=== PATIENT | female | born 1950 | race Caucasian/White ===

== ENCOUNTER → 2019-01-04 08:17 | Outpatient (CLI) | payer OTHER, SELFPAY ==
[2019-01-04 08:36] LABS: Add Manual Diff / Slide Review NO; Basophils Absolute Auto 0 /uL (0-100); Eosinophils Absolute Auto 200 /uL (0-450); Eosinophils Percent Auto 5.1 % (2-4); Hematocrit 39.6 % (36-46); Hemoglobin 13.4 g/dL (12.0-16.0); Lymphocytes Absolute Auto 1700 /uL (1100-4500); Lymphocytes Percent Auto 36.3 % (25-40); Mean Corpuscular HGB Conc 33.8 % (30-36); Mean Corpuscular Hemoglobin 31.9 PG (26-34); Mean Corpuscular Volume 94.3 fL (80-100); Monocytes Absolute Auto 400 /uL (0-900); Monocytes Percent Auto 9.2 % (3-14); Neutrophils Absolute Auto 2200 /uL (1500-7000); Neutrophils Percent Auto 48.4 % (50-75); Platelet Count 292 X10^3/uL (150-400); Red Cell Distribution Width 13.7 % (11.6-14.8); White Blood Cell Count 4.6 X10^3/uL (4.5-11.0)
[2019-01-04 09:06] LABS: Alanine Aminotransferase 21 IU/L (9-52); Albumin 4.5 g/dL (3.5-5.0); Albumin Globulin Ratio 1.6 (1.0-2.8); Alkaline Phosphatase 58 U/L (38-126); Aspartate Aminotransferase 25 IU/L (14-36); Bilirubin Total 0.3 mg/dL (0.2-1.3); Blood Urea Nitrogen 20 mg/dL (7-17); Calcium 9.4 mg/dL (8.4-10.2); Carbon Dioxide 27 mmol/L (22-32); Chloride 102 mmol/L (98-107); Cholesterol 225 mg/dL (140-199); Estimated Glomerular Filt Rate > 60.0 mL/min (>60); Globulin 2.8 g/dL (1.7-4.1); Glucose 94 mg/dL (80-110); HDL Cholesterol 88 mg/dL (40-60); HEMOLYSIS 15 (0-50); LDL Cholesterol Calculated 119 mg/dL (<100); Potassium 4.1 mmol/L (3.4-5.1); Sodium 138 mmol/L (137-145); Total Protein 7.3 g/dL (6.3-8.2); Triglycerides 88 mg/dL (35-150)
== END ==
PROVIDERS: PCP Family Medicine; Visit Provider Family Medicine
DX: E78.2 Mixed hyperlipidemia (principal); Z13.6 Encounter for screening for cardiovascular disorders
CPT/HCPCS: 36415; 80053; 80061; 84443; 85025

== ENCOUNTER → 2019-01-17 09:54 | Outpatient (CLI) | payer OTHER, SELFPAY ==
--- NOTE | 2019-01-17 09:56 | DI.RAD.S_ITS ---
PROCEDURE: XR HIP W PEL IF DONE LT MIN 4V INDICATIONS: hip pain TECHNIQUE: AP pelvis with lateral view(s) of the bilateral hip(s). COMPARISON: None. FINDINGS: Bones: No fractures or dislocations. Pelvic ring appears intact. No suspicious bony lesions. There is asymmetric degree of mild hip joint space narrowing Soft tissues: The visualized bowel gas pattern is normal. No suspicious soft tissue calcifications. 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 Dictated by: Lennox Dumont M.D. on 01/17/2019 at 10:37 Approved by: Lennox Dumont M.D. on 01/17/2019 at 10:37
== END ==
PROVIDERS: PCP Family Medicine; Visit Provider Family Medicine
DX: M25.559 Pain in unspecified hip (principal); M16.0 Bilateral primary osteoarthritis of hip
CPT/HCPCS: 73522

== ENCOUNTER 2019-05-03 08:15 | Outpatient (RCR) | payer OTHER, SELFPAY ==
--- NOTE | 2019-03-14 10:31 | PT.OIE ---
Current Diagnoses Pain in right hip (03/14/19) Pain in left hip (03/14/19) Past Surgical History History of carpal tunnel repair Provider Visit Care Team Role Provider Type Gael Colorado MD Attending Provider Physician Primary Care Provider Specialty: Family Practice Address: [address] [place] [address], [id number] Email: [email or web address] Physical Therapy Initial Evaluation PT-OP-A Visit Information Start: 03/12/19 11:07 Freq: Status: Active Protocol: Document 03/14/19 08:22 [facility] (Rec: 03/14/19 10:08 [facility] [id number]) Out-Patient Physical Therapy Visit Information Visit Information Visit Type Initial Evaluation Visit Start Time 08:45 Visit Stop Time 09:40 Total Visit Minutes 55 PT-OP-B Current Condition Start: 03/12/19 11:07 Freq: Status: Active Protocol: Document 03/14/19 08:22 [facility] (Rec: 03/14/19 10:08 [facility] [id number]) Current Condition History of Current Condition History of Current Condition Pt reports B hip pain that she barely notices in the summer, but it bothers her in the winter. Reports it will go between 0-3 and sometimes when she stands up it feels like it is going to buckle. 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 Pt reports she walks daily and in the summer she gardens. Pt reports pain is mostly random. Sitting a lot makes it worse. It rarely bothers her at night. Occasionally, it just hurts, but is unsure why. Prior Treatments and Tests xrays show arthritis B Treatment Goals Patient/Caregiver Goals Be more mindful of exercises she is doing, improve ROM PT-OP-C Subjective Start: 03/12/19 11:07 Freq: Status: Active Protocol: Document 03/14/19 08:22 [facility] (Rec: 03/14/19 10:08 [facility] [id number]) Patient Questionnaires Lower Extremity Functional Scale LEFS Score 72 LEFS Impairment 1 to 19% Impaired (Score 63-79 ) PT-OP-F Manual Assessment Start: 03/12/19 11:07 Freq: Status: Active Protocol: Document 03/14/19 08:22 [facility] (Rec: 03/14/19 10:08 [facility] [id number]) Manual Assessments Soft Tissue Assessment Soft Tissue Mobility Assessment Tightness in piriformis R>L Joint Mobility Assessment Joint Mobility Assessment tightness in R hip w/hip flex & B hips into ER with dec innominate mobility; equal iliac crest height PT-OP-G Mobility & Gait Start: 03/12/19 11:07 Freq: Status: Active Protocol: Document 03/14/19 08:22 [facility] (Rec: 03/14/19 10:08 [facility] [id number]) OP Gait Assessment Comments Gait Comments Pt amb with ER of pelvis L side with IR of femur PT-OP-J Posture/Palpation/Skin Start: 03/12/19 11:07 Freq: Status: Active Protocol: Document 03/14/19 08:22 [facility] (Rec: 03/14/19 10:08 [facility] [id number]) Posture Evaluation Jeff Postural Classification System Jeff Postural Classifications Vertical/Posterior Vertebral Compression Test 1 Elbow Flexion Test 5 Lumbar Protective Mechanism Left AP 0 Lumbar Protective Mechanism Right AP 3 Lumbar Protective Mechanism Left PA 2 Lumbar Protective Mechanism Right PA 3 PT-OP-K Range of Motion Start: 03/12/19 11:07 Freq: Status: Active Protocol: Document 03/14/19 08:22 [facility] (Rec: 03/14/19 10:08 [facility] [id number]) Hip Goniometric Range of Motion Hip Right Active Flexion w/Knee Flexed 128 Straight Leg Raise 95 Abduction 42 Internal Rotation 40 External Rotation 38 Left Active Flexion w/Knee Flexed 132 Straight Leg Raise 108 Abduction 37 Internal Rotation 48 External Rotation 28 PT-OP-L Special Tests Start: 03/12/19 11:07 Freq: Status: Active Protocol: Document 03/14/19 08:22 [facility] (Rec: 03/14/19 10:08 [facility] [id number]) Special Tests Hip Special Tests Niko Test Results iliopsoas tightness L & RF B Straight Leg Raise Test Results neg PT-OP-M Strength Start: 03/12/19 11:07 Freq: Status: Active Protocol: Document 03/14/19 08:22 [facility] (Rec: 03/14/19 10:08 [facility] [id number]) Hip Strength Hip Manual Muscle Testing Right Flexion (L2) 4+ Good+ Extension (S1) 4+ Good+ Abduction 4 Good Adduction 5 Normal External Rotation 4 Good Internal Rotation 4+ Good+ Left Flexion (L2) 4 Good Extension (S1) 4+ Good+ Abduction 4 Good Adduction 5 Normal External Rotation 4 Good Internal Rotation 5 Normal Knee Strength Knee Manual Muscle Testing Left Flexion (S2) 5 Normal Extension (L3) 5 Normal Right Flexion (S2) 5 Normal Extension (L3) 5 Normal Ankle/Foot Strength Ankle and Foot Manual Muscle Testing Left Dorsiflexion (L4) 5 Normal Right Dorsiflexion (L4) 5 Normal PT-OP-Q Treatments Start: 03/12/19 11:07 Freq: Status: Active Protocol: Document 03/14/19 08:22 [facility] (Rec: 03/14/19 10:08 [facility] [id number]) Therapeutic Exercises Supine Exercises Niko test Supine Exercise Name stretch Side bilateral Prone Exercises ER Prone Exercise Name ER Side bilateral Reps/Minutes 3 Manual Therapy Treatment Soft Tissue Mobilization piriformis Body Location B Mobilization Type Sustained Pressure Body Position Prone Comments w/ER Joint Mobilizations innominate Joint L Direction ER FM hip Joint B Direction hip on axis ER FM PT-OP-T Assessment and Plan Start: 03/12/19 11:07 Freq: Status: Active Protocol: Document 03/14/19 08:22 [facility] (Rec: 03/14/19 10:08 [facility] [id number]) Physical Therapy Assessment Rehab Potential Rehabilitation Potential Good Evaluation Complexity Number of Personal Factors/Comorbidities 1-2 Number of Body Systems Impaired 4 or More Clinical Presentation at Evaluation Stable Impairments Impairments Activity Tolerance Balance Functional Activities Functional Mobility Gait Pain Posture ROM Soft Tissue Mobility Strength Goals posture Foxer Goal (LTG) Pt will present with good posture & walking mechanics without cueing. LTG Duration 05/13/19 ROM Foxer Goal (LTG) Pt will have WNL hip ROM and flexibility B without pain at end ranges so she does not have pain at yoga LTG Duration 05/13/19 strength Short Term Goal (STG) Pt will be indep with HEP STG Duration 04/12/19 Prison Goal (LTG) Pt will have 5/5 LE strength, LPM & VCT to deomonstrate improved stability to allow cont active lifestyle without pain. Assessment Summary Assessment Pt presents with B intermittent hip pain that is conistant with OA. She does have limits in ROM & strength and would benefit from PT to address these concerns to allow her to maintain her active lifestyle. Physical Therapy Plan Frequency and Duration Duration of Treatment 2 months Plan of Care Start Date 03/14/19 Plan of Care End Date 05/14/19 Therapeutic Interventions Therapeutic Interventions Aquatic Therapy Balance Training Gait Training Home Exercise Program Joint Mobilizations Manual Therapy Neuromuscular Re-education Patient/Caregiver Education Self-Care/Home Management Soft Tissue Mobilization Taping Therapeutic Activities Therapeutic Exercises Modalities Cold Pack/Ice Massage Electric Stimulation Hot Packs Infrared Therapy Iontophoresis Ultrasound Next Visit Focus/Plan Next Note Type Treatment Note Next Visit Plan hip, sacrum & innominate mobs, side step squat
--- NOTE | 2019-03-14 10:31 | PT.OPPOC ---
Current Diagnoses Pain in right hip (03/14/19) Pain in left hip (03/14/19) Provider Visit Care Team Role Provider Type Gael Colorado MD Attending Provider Physician Primary Care Provider Specialty: Family Practice Address: [address] [place] [address], [phone] Email: [email or web address] Plan Of Care PT-OP-T Assessment and Plan Start: 03/12/19 11:07 Freq: Status: Active Protocol: Document 03/14/19 08:22 [facility] (Rec: 03/14/19 10:08 [facility] [id number]) Physical Therapy Assessment Rehab Potential Rehabilitation Potential Good Evaluation Complexity Number of Personal Factors/Comorbidities 1-2 Number of Body Systems Impaired 4 or More Clinical Presentation at Evaluation Stable Impairments Impairments Activity Tolerance Balance Functional Activities Functional Mobility Gait Pain Posture ROM Soft Tissue Mobility Strength Goals posture Fpc Goal (LTG) Pt will present with good posture & walking mechanics without cueing. LTG Duration 05/13/19 ROM [employer] Stores Attendant Goal (LTG) Pt will have WNL hip ROM and flexibility B without pain at end ranges so she does not have pain at yoga LTG Duration 05/13/19 strength Short Term Goal (STG) Pt will be indep with HEP STG Duration 04/12/19 [employer] Attendant Goal (LTG) Pt will have 5/5 LE strength, LPM & VCT to deomonstrate improved stability to allow cont active lifestyle without pain. Assessment Summary Assessment Pt presents with B intermittent hip pain that is conistant with OA. She does have limits in ROM & strength and would benefit from PT to address these concerns to allow her to maintain her active lifestyle. Physical Therapy Plan Frequency and Duration Duration of Treatment 2 months Plan of Care Start Date 03/14/19 Plan of Care End Date 05/14/19 Therapeutic Interventions Therapeutic Interventions Aquatic Therapy Balance Training Gait Training Home Exercise Program Joint Mobilizations Manual Therapy Neuromuscular Re-education Patient/Caregiver Education Self-Care/Home Management Soft Tissue Mobilization Taping Therapeutic Activities Therapeutic Exercises Modalities Cold Pack/Ice Massage Electric Stimulation Hot Packs Infrared Therapy Iontophoresis Ultrasound Next Visit Focus/Plan Next Note Type Treatment Note Next Visit Plan hip, sacrum & innominate mobs, side step squat Plan of Care Dates Plan of Care Start Date 03/14/19 Plan of Care End Date 05/14/19 Please Sign and Return: I have reviewed this Plan of Care and certify that the skilled therapy services above are required to meet the patient?s needs. Physician Signature Date Printed Name and Credentials Clinical Instructor Signature Printed Name and Credentials
--- NOTE | 2019-03-28 14:29 | PT.OTN ---
Current Diagnoses Pain in right hip (03/28/19) Pain in left hip (03/28/19) Physical Therapy Treatment Note PT-OP-A Visit Information Start: 03/12/19 11:07 Freq: Status: Active Protocol: Document 03/28/19 14:25 [facility] (Rec: 03/28/19 14:29 [facility] [id number]) Out-Patient Physical Therapy Visit Information Visit Information Visit Type Treatment Note Visit Start Time 10:35 Visit Stop Time 11:15 Total Visit Minutes 40 Visit Number 2 Number of LIME KILN OPERATOR Visits 0 PT-OP-B Current Condition Start: 03/12/19 11:07 Freq: Status: Active Protocol: Document 03/14/19 08:22 [facility] (Rec: 03/14/19 10:08 [facility] [id number]) Current Condition History of Current Condition History of Current Condition Pt reports B hip pain that she barely notices in the summer, but it bothers her in the winter. Reports it will go between 0-3 and sometimes when she stands up it feels like it is going to buckle. 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 Pt reports she walks daily and in the summer she gardens. Pt reports pain is mostly random. Sitting a lot makes it worse. It rarely bothers her at night. Occasionally, it just hurts, but is unsure why. Prior Treatments and Tests xrays show arthritis B Treatment Goals Patient/Caregiver Goals Be more mindful of exercises she is doing, improve ROM PT-OP-C Subjective Start: 03/12/19 11:07 Freq: Status: Active Protocol: Document 03/28/19 14:25 [facility] (Rec: 03/28/19 14:29 [facility] [id number]) OP-PT Subjective Patient Comments Patient Comments Pt reports compliance with exercises & stretching PT-OP-F Manual Assessment Start: 03/12/19 11:07 Freq: Status: Active Protocol: Document 03/14/19 08:22 [facility] (Rec: 03/14/19 10:08 [facility] [id number]) Manual Assessments Soft Tissue Assessment Soft Tissue Mobility Assessment Tightness in piriformis R>L Joint Mobility Assessment Joint Mobility Assessment tightness in R hip w/hip flex & B hips into ER with dec innominate mobility; equal iliac crest height PT-OP-G Mobility & Gait Start: 03/12/19 11:07 Freq: Status: Active Protocol: Document 03/14/19 08:22 [facility] (Rec: 03/14/19 10:08 [facility] [id number]) OP Gait Assessment Comments Gait Comments Pt amb with ER of pelvis L side with IR of femur PT-OP-J Posture/Palpation/Skin Start: 03/12/19 11:07 Freq: Status: Active Protocol: Document 03/14/19 08:22 [facility] (Rec: 03/14/19 10:08 [facility] [id number]) Posture Evaluation [facility] Postural Classification System [facility] Postural Classifications Vertical/Posterior Vertebral Compression Test 1 Elbow Flexion Test 5 Lumbar Protective Mechanism Left AP 0 Lumbar Protective Mechanism Right AP 3 Lumbar Protective Mechanism Left PA 2 Lumbar Protective Mechanism Right PA 3 PT-OP-K Range of Motion Start: 03/12/19 11:07 Freq: Status: Active Protocol: Document 03/14/19 08:22 [facility] (Rec: 03/14/19 10:08 [facility] [id number]) Hip Goniometric Range of Motion Hip Right Active Flexion w/Knee Flexed 128 Straight Leg Raise 95 Abduction 42 Internal Rotation 40 External Rotation 38 Left Active Flexion w/Knee Flexed 132 Straight Leg Raise 108 Abduction 37 Internal Rotation 48 External Rotation 28 PT-OP-L Special Tests Start: 03/12/19 11:07 Freq: Status: Active Protocol: Document 03/14/19 08:22 [facility] (Rec: 03/14/19 10:08 [facility] [id number]) Special Tests Hip Special Tests Niko Test Results iliopsoas tightness L & RF B Straight Leg Raise Test Results neg PT-OP-M Strength Start: 03/12/19 11:07 Freq: Status: Active Protocol: Document 03/14/19 08:22 [facility] (Rec: 03/14/19 10:08 [facility] [id number]) Hip Strength Hip Manual Muscle Testing Right Flexion (L2) 4+ Good+ Extension (S1) 4+ Good+ Abduction 4 Good Adduction 5 Normal External Rotation 4 Good Internal Rotation 4+ Good+ Left Flexion (L2) 4 Good Extension (S1) 4+ Good+ Abduction 4 Good Adduction 5 Normal External Rotation 4 Good Internal Rotation 5 Normal Knee Strength Knee Manual Muscle Testing Left Flexion (S2) 5 Normal Extension (L3) 5 Normal Right Flexion (S2) 5 Normal Extension (L3) 5 Normal Ankle/Foot Strength Ankle and Foot Manual Muscle Testing Left Dorsiflexion (L4) 5 Normal Right Dorsiflexion (L4) 5 Normal PT-OP-Q Treatments Start: 03/12/19 11:07 Freq: Status: Active Protocol: Document 03/28/19 14:25 [facility] (Rec: 03/28/19 14:29 [facility] [id number]) Therapeutic Exercises Standing Exercises side step squat Standing Exercise Name resisted Side bilateral Resistance L3 tband Reps/Minutes 5ft Comments min cueing for squat form Manual Therapy Treatment Soft Tissue Mobilization iliacus Body Location R Mobilization Type Sustained Pressure piriformis Body Location B Mobilization Type Sustained Pressure Body Position Prone Comments w/ER Joint Mobilizations sacrum Joint L Direction UPA innominate Joint B Direction ER & flex Functional mob hip Joint B Direction hip on axis ER & inf glide functional mob PT-OP-T Assessment and Plan Start: 03/12/19 11:07 Freq: Status: Active Protocol: Document 03/28/19 14:25 [facility] (Rec: 03/28/19 14:29 [facility] [id number]) Physical Therapy Assessment Goals posture Stereo Operator Goal (LTG) Pt will present with good posture & walking mechanics without cueing. LTG Duration 05/13/19 ROM Stereo Operator Goal (LTG) Pt will have WNL hip ROM and flexibility B without pain at end ranges so she does not have pain at yoga LTG Duration 05/13/19 strength Short Term Goal (STG) Pt will be indep with HEP STG Duration 04/12/19 Stereo Operator Goal (LTG) Pt will have 5/5 LE strength, LPM & VCT to deomonstrate improved stability to allow cont active lifestyle without pain. Assessment Summary Assessment Pt had significant improvement in hip ROM with treatment and reported feeling looser. She was able to complete side step squat exercise with min cueing for squat form. Physical Therapy Plan Frequency and Duration Duration of Treatment 2 months Plan of Care Start Date 03/14/19 Plan of Care End Date 05/14/19 Next Visit Focus/Plan Next Note Type Treatment Note Next Visit Plan hip, sacrum & innominate mobs as needed for inc mobility; work on hip flex strength; PNF pelvic girdle patterns
--- NOTE | 2019-04-12 09:40 | PT.OTN ---
Current Diagnoses Pain in right hip (04/12/19) Pain in left hip (04/12/19) Physical Therapy Treatment Note PT-OP-A Visit Information Start: 03/12/19 11:07 Freq: Status: Active Protocol: Document 04/12/19 09:37 [facility] (Rec: 04/12/19 09:40 [facility] [id number]) Out-Patient Physical Therapy Visit Information Visit Information Visit Type Treatment Note Visit Start Time 08:15 Visit Stop Time 09:00 Total Visit Minutes 38 Visit Number 3 PT-OP-B Current Condition Start: 03/12/19 11:07 Freq: Status: Active Protocol: Document 03/14/19 08:22 [facility] (Rec: 03/14/19 10:08 [facility] [id number]) Current Condition History of Current Condition History of Current Condition Pt reports B hip pain that she barely notices in the summer, but it bothers her in the winter. Reports it will go between 0-3 and sometimes when she stands up it feels like it is going to buckle. 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 Pt reports she walks daily and in the summer she gardens. Pt reports pain is mostly random. Sitting a lot makes it worse. It rarely bothers her at night. Occasionally, it just hurts, but is unsure why. Prior Treatments and Tests xrays show arthritis B Treatment Goals Patient/Caregiver Goals Be more mindful of exercises she is doing, improve ROM PT-OP-C Subjective Start: 03/12/19 11:07 Freq: Status: Active Protocol: Document 04/12/19 09:37 [facility] (Rec: 04/12/19 09:40 [facility] [id number]) OP-PT Subjective Patient Comments Patient Comments Pt reports flexibility on both is getting better. PT-OP-F Manual Assessment Start: 03/12/19 11:07 Freq: Status: Active Protocol: Document 03/14/19 08:22 [facility] (Rec: 03/14/19 10:08 [facility] [id number]) Manual Assessments Soft Tissue Assessment Soft Tissue Mobility Assessment Tightness in piriformis R>L Joint Mobility Assessment Joint Mobility Assessment tightness in R hip w/hip flex & B hips into ER with dec innominate mobility; equal iliac crest height PT-OP-G Mobility & Gait Start: 03/12/19 11:07 Freq: Status: Active Protocol: Document 03/14/19 08:22 [facility] (Rec: 03/14/19 10:08 [facility] [id number]) OP Gait Assessment Comments Gait Comments Pt amb with ER of pelvis L side with IR of femur PT-OP-J Posture/Palpation/Skin Start: 03/12/19 11:07 Freq: Status: Active Protocol: Document 03/14/19 08:22 [facility] (Rec: 03/14/19 10:08 [facility] [id number]) Posture Evaluation [facility] Postural Classification System [facility] Postural Classifications Vertical/Posterior Vertebral Compression Test 1 Elbow Flexion Test 5 Lumbar Protective Mechanism Left AP 0 Lumbar Protective Mechanism Right AP 3 Lumbar Protective Mechanism Left PA 2 Lumbar Protective Mechanism Right PA 3 PT-OP-K Range of Motion Start: 03/12/19 11:07 Freq: Status: Active Protocol: Document 03/14/19 08:22 [facility] (Rec: 03/14/19 10:08 [facility] [id number]) Hip Goniometric Range of Motion Hip Right Active Flexion w/Knee Flexed 128 Straight Leg Raise 95 Abduction 42 Internal Rotation 40 External Rotation 38 Left Active Flexion w/Knee Flexed 132 Straight Leg Raise 108 Abduction 37 Internal Rotation 48 External Rotation 28 PT-OP-L Special Tests Start: 03/12/19 11:07 Freq: Status: Active Protocol: Document 03/14/19 08:22 [facility] (Rec: 03/14/19 10:08 [facility] [id number]) Special Tests Hip Special Tests Niko Test Results iliopsoas tightness L & RF B Straight Leg Raise Test Results neg PT-OP-M Strength Start: 03/12/19 11:07 Freq: Status: Active Protocol: Document 03/14/19 08:22 [facility] (Rec: 03/14/19 10:08 [facility] [id number]) Hip Strength Hip Manual Muscle Testing Right Flexion (L2) 4+ Good+ Extension (S1) 4+ Good+ Abduction 4 Good Adduction 5 Normal External Rotation 4 Good Internal Rotation 4+ Good+ Left Flexion (L2) 4 Good Extension (S1) 4+ Good+ Abduction 4 Good Adduction 5 Normal External Rotation 4 Good Internal Rotation 5 Normal Knee Strength Knee Manual Muscle Testing Left Flexion (S2) 5 Normal Extension (L3) 5 Normal Right Flexion (S2) 5 Normal Extension (L3) 5 Normal Ankle/Foot Strength Ankle and Foot Manual Muscle Testing Left Dorsiflexion (L4) 5 Normal Right Dorsiflexion (L4) 5 Normal PT-OP-Q Treatments Start: 03/12/19 11:07 Freq: Status: Active Protocol: Document 04/12/19 09:37 [facility] (Rec: 04/12/19 09:40 [facility] [id number]) Cardio Equipment Recumbent Stepper (Sci-Fit) Duration (Minutes) 5 Resistance 2 Seat Position 9 Therapeutic Exercises Standing Exercises 2 Standing Exercise Name FWD lunges Reps/Minutes x 12 ft x 3 laps 1 Standing Exercise Name Squats Resistance 5Lbs Reps/Minutes x 12 reps side step squat Standing Exercise Name resisted Side bilateral Resistance L3 tband Reps/Minutes 5ft Comments min cueing for squat form Manual Therapy Treatment Soft Tissue Mobilization iliacus Body Location R Mobilization Type Sustained Pressure piriformis Body Location B Mobilization Type Sustained Pressure Body Position Prone Comments w/ER Joint Mobilizations sacrum Joint L Direction UPA innominate Joint B Direction ER & flex Functional mob hip Joint B Direction hip on axis ER & inf glide functional mob PT-OP-T Assessment and Plan Start: 03/12/19 11:07 Freq: Status: Active Protocol: Document 04/12/19 09:37 [facility] (Rec: 04/12/19 09:40 [facility] [id number]) Physical Therapy Assessment Assessment Summary Assessment Tolerated treatment well. Physical Therapy Plan Next Visit Focus/Plan Next Note Type Treatment Note Next Visit Plan hip, sacrum & innominate mobs as needed for inc mobility; work on hip flex strength; PNF pelvic girdle patterns
--- NOTE | 2019-04-26 10:29 | PT.OTN ---
Current Diagnoses Pain in right hip (04/26/19) Pain in left hip (04/26/19) Physical Therapy Treatment Note PT-OP-A Visit Information Start: 03/12/19 11:07 Freq: Status: Active Protocol: Document 04/26/19 09:27 [facility] (Rec: 04/26/19 10:29 [facility] [id number]) Out-Patient Physical Therapy Visit Information Visit Information Visit Type Treatment Note Visit Start Time 08:17 Visit Stop Time 09:02 Total Visit Minutes 45 Visit Number 4 Number of TESTING CONSULTANT Visits 0 PT-OP-B Current Condition Start: 03/12/19 11:07 Freq: Status: Active Protocol: Document 03/14/19 08:22 [facility] (Rec: 03/14/19 10:08 [facility] [id number]) Current Condition History of Current Condition History of Current Condition Pt reports B hip pain that she barely notices in the summer, but it bothers her in the winter. Reports it will go between 0-3 and sometimes when she stands up it feels like it is going to buckle. 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 Pt reports she walks daily and in the summer she gardens. Pt reports pain is mostly random. Sitting a lot makes it worse. It rarely bothers her at night. Occasionally, it just hurts, but is unsure why. Prior Treatments and Tests xrays show arthritis B Treatment Goals Patient/Caregiver Goals Be more mindful of exercises she is doing, improve ROM PT-OP-C Subjective Start: 03/12/19 11:07 Freq: Status: Active Protocol: Document 04/26/19 09:27 [facility] (Rec: 04/26/19 10:29 [facility] [id number]) OP-PT Subjective Patient Comments Patient Comments Pt reports she was very sore after last session. She had some inc tightness after that session and feels like she went backwards a little with her tightness. It was eye opening for her though of her weakness so she has started working on lunges & squatting at home. PT-OP-F Manual Assessment Start: 03/12/19 11:07 Freq: Status: Active Protocol: Document 03/14/19 08:22 [facility] (Rec: 03/14/19 10:08 [facility] [id number]) Manual Assessments Soft Tissue Assessment Soft Tissue Mobility Assessment Tightness in piriformis R>L Joint Mobility Assessment Joint Mobility Assessment tightness in R hip w/hip flex & B hips into ER with dec innominate mobility; equal iliac crest height PT-OP-G Mobility & Gait Start: 03/12/19 11:07 Freq: Status: Active Protocol: Document 03/14/19 08:22 [facility] (Rec: 03/14/19 10:08 [facility] [id number]) OP Gait Assessment Comments Gait Comments Pt amb with ER of pelvis L side with IR of femur PT-OP-J Posture/Palpation/Skin Start: 03/12/19 11:07 Freq: Status: Active Protocol: Document 03/14/19 08:22 [facility] (Rec: 03/14/19 10:08 [facility] [id number]) Posture Evaluation Jeff Postural Classification System Jeff Postural Classifications Vertical/Posterior Vertebral Compression Test 1 Elbow Flexion Test 5 Lumbar Protective Mechanism Left AP 0 Lumbar Protective Mechanism Right AP 3 Lumbar Protective Mechanism Left PA 2 Lumbar Protective Mechanism Right PA 3 PT-OP-K Range of Motion Start: 03/12/19 11:07 Freq: Status: Active Protocol: Document 03/14/19 08:22 [facility] (Rec: 03/14/19 10:08 [facility] [id number]) Hip Goniometric Range of Motion Hip Right Active Flexion w/Knee Flexed 128 Straight Leg Raise 95 Abduction 42 Internal Rotation 40 External Rotation 38 Left Active Flexion w/Knee Flexed 132 Straight Leg Raise 108 Abduction 37 Internal Rotation 48 External Rotation 28 PT-OP-L Special Tests Start: 03/12/19 11:07 Freq: Status: Active Protocol: Document 03/14/19 08:22 [facility] (Rec: 03/14/19 10:08 [facility] [id number]) Special Tests Hip Special Tests Niko Test Results iliopsoas tightness L & RF B Straight Leg Raise Test Results neg PT-OP-M Strength Start: 03/12/19 11:07 Freq: Status: Active Protocol: Document 03/14/19 08:22 [facility] (Rec: 03/14/19 10:08 [facility] [id number]) Hip Strength Hip Manual Muscle Testing Right Flexion (L2) 4+ Good+ Extension (S1) 4+ Good+ Abduction 4 Good Adduction 5 Normal External Rotation 4 Good Internal Rotation 4+ Good+ Left Flexion (L2) 4 Good Extension (S1) 4+ Good+ Abduction 4 Good Adduction 5 Normal External Rotation 4 Good Internal Rotation 5 Normal Knee Strength Knee Manual Muscle Testing Left Flexion (S2) 5 Normal Extension (L3) 5 Normal Right Flexion (S2) 5 Normal Extension (L3) 5 Normal Ankle/Foot Strength Ankle and Foot Manual Muscle Testing Left Dorsiflexion (L4) 5 Normal Right Dorsiflexion (L4) 5 Normal PT-OP-Q Treatments Start: 03/12/19 11:07 Freq: Status: Active Protocol: Document 04/26/19 09:27 [facility] (Rec: 04/26/19 10:29 [facility] [id number]) Manual Therapy Treatment Joint Mobilizations sacrum Direction caudal FM innominate Direction L ER & B flex Functional mob hip Direction L hip on axis ER & B inf glide functional mob Neuro Re-Education Treatment Other Activities gait at wall Details to faciliate ant elevatioN & post depression Reps/Duration B 10 sec holds PNF Details ant elevation & post dep Reps/Duration B Comments rhythmic initition progressed to COI progresed to COI with LE patterns with isotonic reversals PT-OP-T Assessment and Plan Start: 03/12/19 11:07 Freq: Status: Active Protocol: Document 04/26/19 09:27 [facility] (Rec: 04/26/19 10:29 [facility] [id number]) Physical Therapy Assessment Goals posture Enterprise Application Analyst Goal (LTG) Pt will present with good posture & walking mechanics without cueing. LTG Duration 05/13/19 ROM Mcc Goal (LTG) Pt will have WNL hip ROM and flexibility B without pain at end ranges so she does not have pain at yoga LTG Duration 05/13/19 strength Short Term Goal (STG) Pt will be indep with HEP STG Duration 04/12/19 Mcc Goal (LTG) Pt will have 5/5 LE strength, LPM & VCT to deomonstrate improved stability to allow cont active lifestyle without pain. Assessment Summary Assessment Pt had inc tightness on L side greater than R which improved with joint mobilizations. She had difficulty with post depression patterning with tendency to want to rotate through her lumbar spine. Physical Therapy Plan Frequency and Duration Duration of Treatment 2 months Plan of Care Start Date 03/14/19 Plan of Care End Date 05/14/19 Next Visit Focus/Plan Next Note Type Treatment Note Next Visit Plan work on standing posture progressed into wt shift fwd to resisted walking; work on soft tissue restrictions as needed
--- NOTE | 2019-05-03 09:40 | PT.OTN ---
Current Diagnoses Pain in right hip (05/03/19) Pain in left hip (05/03/19) Physical Therapy Treatment Note PT-OP-A Visit Information Start: 03/12/19 11:07 Freq: Status: Active Protocol: Document 05/03/19 09:15 [facility] (Rec: 05/03/19 09:40 [facility] [id number]) Out-Patient Physical Therapy Visit Information Visit Information Visit Type Discharge Summary Visit Start Time 08:20 Visit Stop Time 09:00 Total Visit Minutes 40 Visit Number 5 PT-OP-B Current Condition Start: 03/12/19 11:07 Freq: Status: Active Protocol: Document 03/14/19 08:22 [facility] (Rec: 03/14/19 10:08 [facility] [id number]) Current Condition History of Current Condition History of Current Condition Pt reports B hip pain that she barely notices in the summer, but it bothers her in the winter. Reports it will go between 0-3 and sometimes when she stands up it feels like it is going to buckle. 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 Pt reports she walks daily and in the summer she gardens. Pt reports pain is mostly random. Sitting a lot makes it worse. It rarely bothers her at night. Occasionally, it just hurts, but is unsure why. Prior Treatments and Tests xrays show arthritis B Treatment Goals Patient/Caregiver Goals Be more mindful of exercises she is doing, improve ROM PT-OP-C Subjective Start: 03/12/19 11:07 Freq: Status: Active Protocol: Document 05/03/19 09:15 [facility] (Rec: 05/03/19 09:40 [facility] [id number]) OP-PT Subjective Patient Comments Patient Comments Pt reports she has to cancel her last appt next week. She feels like she is doing well and is working hard on exercises. Patient Reported Progress Improving PT-OP-F Manual Assessment Start: 03/12/19 11:07 Freq: Status: Active Protocol: Document 03/14/19 08:22 [facility] (Rec: 03/14/19 10:08 [facility] [id number]) Manual Assessments Soft Tissue Assessment Soft Tissue Mobility Assessment Tightness in piriformis R>L Joint Mobility Assessment Joint Mobility Assessment tightness in R hip w/hip flex & B hips into ER with dec innominate mobility; equal iliac crest height PT-OP-G Mobility & Gait Start: 03/12/19 11:07 Freq: Status: Active Protocol: Document 03/14/19 08:22 [facility] (Rec: 03/14/19 10:08 [facility] [id number]) OP Gait Assessment Comments Gait Comments Pt amb with ER of pelvis L side with IR of femur PT-OP-J Posture/Palpation/Skin Start: 03/12/19 11:07 Freq: Status: Active Protocol: Document 03/14/19 08:22 [facility] (Rec: 03/14/19 10:08 [facility] [id number]) Posture Evaluation [facility] Postural Classification System [facility] Postural Classifications Vertical/Posterior Vertebral Compression Test 1 Elbow Flexion Test 5 Lumbar Protective Mechanism Left AP 0 Lumbar Protective Mechanism Right AP 3 Lumbar Protective Mechanism Left PA 2 Lumbar Protective Mechanism Right PA 3 PT-OP-K Range of Motion Start: 03/12/19 11:07 Freq: Status: Active Protocol: Document 03/14/19 08:22 [facility] (Rec: 03/14/19 10:08 [facility] [id number]) Hip Goniometric Range of Motion Hip Right Active Flexion w/Knee Flexed 128 Straight Leg Raise 95 Abduction 42 Internal Rotation 40 External Rotation 38 Left Active Flexion w/Knee Flexed 132 Straight Leg Raise 108 Abduction 37 Internal Rotation 48 External Rotation 28 PT-OP-L Special Tests Start: 03/12/19 11:07 Freq: Status: Active Protocol: Document 03/14/19 08:22 [facility] (Rec: 03/14/19 10:08 [facility] [id number]) Special Tests Hip Special Tests Niko Test Results iliopsoas tightness L & RF B Straight Leg Raise Test Results neg PT-OP-M Strength Start: 03/12/19 11:07 Freq: Status: Active Protocol: Document 03/14/19 08:22 [facility] (Rec: 03/14/19 10:08 [facility] [id number]) Hip Strength Hip Manual Muscle Testing Right Flexion (L2) 4+ Good+ Extension (S1) 4+ Good+ Abduction 4 Good Adduction 5 Normal External Rotation 4 Good Internal Rotation 4+ Good+ Left Flexion (L2) 4 Good Extension (S1) 4+ Good+ Abduction 4 Good Adduction 5 Normal External Rotation 4 Good Internal Rotation 5 Normal Knee Strength Knee Manual Muscle Testing Left Flexion (S2) 5 Normal Extension (L3) 5 Normal Right Flexion (S2) 5 Normal Extension (L3) 5 Normal Ankle/Foot Strength Ankle and Foot Manual Muscle Testing Left Dorsiflexion (L4) 5 Normal Right Dorsiflexion (L4) 5 Normal PT-OP-Q Treatments Start: 03/12/19 11:07 Freq: Status: Active Protocol: Document 05/03/19 09:15 [facility] (Rec: 05/03/19 09:40 [facility] [id number]) Gym Equipment Sport Cord red Exercise Details fwd, back and side B Cord/Resistance red Comments wt shift to wt acceptance to then walking Therapeutic Activity Therapeutic Activity posture Name standing posture in mirror Comments progressed to appropriate wt shift then wt acceptance BLE Manual Therapy Treatment Joint Mobilizations innominate Direction L flex FM hip Direction L hip on axis ER & B inf glide functional mob PT-OP-T Assessment and Plan Start: 03/12/19 11:07 Freq: Status: Active Protocol: Document 05/03/19 09:15 [facility] (Rec: 05/03/19 09:40 [facility] [id number]) Physical Therapy Assessment Goals posture Senior Care Goal (LTG) Pt will present with good posture & walking mechanics without cueing. LTG Duration min cueing after exu ROM Leather Carver Goal (LTG) Pt will have WNL hip ROM and flexibility B without pain at end ranges so she does not have pain at yoga LTG Duration achieved during movements today strength Short Term Goal (STG) Pt will be indep with HEP STG Duration achieved Leather Carver Goal (LTG) Pt will have 5/5 LE strength, LPM & VCT to deomonstrate improved stability to allow cont active lifestyle without pain. LTG Duration not tested today but improved weigth shift in standing & functional ability Assessment Summary Assessment Pt is improving with overall gliding of hips B with flex and ER. She improves quickly with mobs and was reminded to cont exercises to strengthen throughout new range. She did well with cueing for posture, wt shift and weight acceptance in standing and was able to apply this into gait. Physical Therapy Plan Discharge Physical Therapy Discharge Reasons Goals Met
== END 2019-05-09 15:15 | disposition home or self-care (01) ==
LOC: PHYS 08:15
PROVIDERS: PCP Family Medicine; Visit Provider Family Medicine
DX: M25.551 Pain in right hip (principal); M25.552 Pain in left hip
CPT/HCPCS: 97110; 97112; 97140; 97161; 97530

== ENCOUNTER → 2019-07-23 11:28 | Outpatient (CLI) | payer OTHER, SELFPAY | PROVIDERS: PCP Family Medicine | DX: Z23 Encounter for immunization (principal) | CPT/HCPCS: 90471; 90662 ==

== ENCOUNTER → 2019-10-11 08:15 | Outpatient (CLI) | payer OTHER, SELFPAY ==
--- NOTE | 2019-10-11 | DI.MG.S_ITS ---
BILATERAL DIGITAL SCREENING MAMMOGRAM 3D/2D WITH CAD: 10/11/2019 CLINICAL: Routine screening. Comparison is made to exams dated: 11/07/2017 mammogram, 07/14/2016 mammogram, and 09/09/2014 mammogram - [facility]. The tissue of both breasts is heterogeneously dense. This may lower the sensitivity of mammography. Current study was also evaluated with a Computer Aided Detection (CAD) system. There are benign vascular calcifications in both breasts. No significant masses, calcifications, or other findings are seen in either breast. There has been no significant interval change. IMPRESSION: There is no mammographic evidence of malignancy. A 1 year screening mammogram is recommended. This exam was interpreted at Station ID: [id number]. NOTE: For mammograms, a report in lay terms will be sent to the patient. Approximately 15% of breast malignancies will not be visualized mammographically. In the management of a palpable breast mass, a negative mammogram must not discourage biopsy of a clinically suspicious lesion. Electronically Signed By: Keny jackson/raghu:10/11/2019 09:07:29 letter sent: Normal Exam ACR BI-RADS Category 2: Benign Finding(s) 3342F
== END ==
PROVIDERS: PCP Family Medicine; Visit Provider Family Medicine
DX: Z12.31 Encounter for screening mammogram for malignant neoplasm of breast (principal)
CPT/HCPCS: 77063; 77067

== ENCOUNTER → 2020-01-21 09:45 | Outpatient (CLI) | payer OTHER, SELFPAY ==
[2020-01-21 10:39] LABS: Add Manual Diff / Slide Review NO; Basophils Absolute Auto 100 /uL (0-100); Basophils Percent Auto 1.2 % (0-2); Eosinophils Absolute Auto 200 /uL (0-450); Eosinophils Percent Auto 4.1 % (2-4); Hematocrit 41.5 % (36-46); Hemoglobin 13.9 g/dL (12.0-16.0); Lymphocytes Absolute Auto 1600 /uL (1100-4500); Lymphocytes Percent Auto 34.9 % (25-40); Mean Corpuscular HGB Conc 33.5 % (30-36); Mean Corpuscular Hemoglobin 32.3 PG (26-34); Mean Corpuscular Volume 96.4 fL (80-100); Monocytes Absolute Auto 500 /uL (0-900); Monocytes Percent Auto 9.6 % (3-14); Neutrophils Absolute Auto 2400 /uL (1500-7000); Neutrophils Percent Auto 50.2 % (50-75); Platelet Count 295 X10^3/uL (150-400); White Blood Cell Count 4.7 X10^3/uL (4.5-11.0)
[2020-01-21 10:54] LABS: Alanine Aminotransferase 23 IU/L (<35); Albumin 4.6 g/dL (3.5-5.0); Albumin Globulin Ratio 1.4 (1.0-2.8); Alkaline Phosphatase 71 U/L (38-126); Aspartate Aminotransferase 31 IU/L (14-36); BUN Creatinine Ratio 19.8 (6-22); Bilirubin Total 0.4 mg/dL (0.2-1.3); Blood Urea Nitrogen 17 mg/dL (7-17); Calcium 9.8 mg/dL (8.4-10.2); Carbon Dioxide 30 mmol/L (22-32); Chloride 104 mmol/L (98-107); Cholesterol 285 mg/dL (140-199); Estimated Glomerular Filt Rate > 60.0 mL/min (>60); Globulin 3.2 g/dL (1.7-4.1); Glucose 100 mg/dL (80-110); HDL Cholesterol 105 mg/dL (40-60); HEMOLYSIS < 15 (0-50); LDL Cholesterol Calculated 168 mg/dL (<100); Potassium 4.4 mmol/L (3.4-5.1); Sodium 140 mmol/L (137-145); Total Protein 7.8 g/dL (6.3-8.2); Triglycerides 61 mg/dL (35-150)
[2020-01-21 12:02] LABS: TSH w/ Reflex to FT4 1.02 uIU/mL (0.47-4.68)
== END ==
PROVIDERS: PCP Family Medicine; Referring Provider Family Medicine; Visit Provider Family Medicine
DX: D72.829 Elevated white blood cell count, unspecified (principal); E78.2 Mixed hyperlipidemia; M16.12 Unilateral primary osteoarthritis, left hip
CPT/HCPCS: 36415; 80053; 80061; 84443; 85025

== ENCOUNTER → 2020-06-26 | Outpatient (CLI) | payer OTHER, SELFPAY | PROVIDERS: PCP Family Medicine; Referring Provider Internal Medicine; Visit Provider Internal Medicine | DX: Z23 Encounter for immunization (principal) | CPT/HCPCS: 90471; 90686 ==

== ENCOUNTER → 2020-08-25 10:04 | Outpatient (CLI) | payer OTHER, SELFPAY ==
--- NOTE | 2020-08-25 10:06 | DI.RAD.S_ITS ---
PROCEDURE: XR THORACIC SPINE 3V INDICATIONS: throracic back pain TECHNIQUE: 3 views of the thoracic spine were acquired. COMPARISON: None. FINDINGS: Bones: No fractures or dislocations. No suspicious bony lesions. Twelve pairs of ribs are noted, and appear intact where visualized. There is a mild degree of degenerative disc disease along the thoracic spine, but no area of compression fracture or significant disc height reduction is found. Paravertebral soft tissue swelling is not seen. Soft tissues: No paravertebral stripe thickening. 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 No compression fracture or evidence of discitis/osteomyelitis is seen. Dictated by: Lennox Dumont M.D. on 08/25/2020 at 11:29 Approved by: Lennox Dumont M.D. on 08/25/2020 at 11:31
== END ==
PROVIDERS: PCP Family Medicine; Referring Provider Family Medicine; Visit Provider Family Medicine
DX: M51.34 Other intervertebral disc degeneration, thoracic region (principal)
CPT/HCPCS: 72072

== ENCOUNTER → 2020-10-13 12:22 | Outpatient (CLI) | payer OTHER, SELFPAY ==
--- NOTE | 2020-10-13 12:24 | DI.RAD.S_ITS ---
PROCEDURE: XR LUMBAR SPINE 2-3V INDICATIONS: Lumbar back pain TECHNIQUE: 3 views of the lumbar spine were acquired. COMPARISON: None. FINDINGS: Bones: 5 [id number] vertebrae are present. There is normal bony alignment. No vertebral body compression fractures. No suspicious bony lesions. Degenerative changes are minimal there is mild facet arthrosis at L4-5 and L5-S1. Disc spaces are normal. Soft tissues: Overlying bowel gas pattern is normal. No suspicious soft tissue calcifications. IMPRESSION: 1. Mild facet arthrosis at L4-5 and L5-S1. 2. Otherwise no significant degenerative changes. 3. No acute abnormality. 4. No disc space narrowing to suggest significant disc disease. Dictated by: Ubaldo Cooper M.D. on 10/13/2020 at 13:24 Approved by: Ubaldo Cooper M.D. on 10/13/2020 at 13:28
== END ==
PROVIDERS: PCP Family Medicine; Referring Provider Family Medicine; Visit Provider Family Medicine
DX: M54.5 Low back pain (principal); M47.816 Spondylosis without myelopathy or radiculopathy, lumbar region; M47.817 Spondylosis without myelopathy or radiculopathy, lumbosacral region
CPT/HCPCS: 72100

== ENCOUNTER → 2021-02-04 11:39 | Outpatient (CLI) | payer OTHER, SELFPAY ==
[2021-02-04 13:09] LABS: Add Manual Diff / Slide Review NO; Basophils Absolute Auto 100 /uL (0-100); Basophils Percent Auto 0.9 % (0-2); Eosinophils Absolute Auto 100 /uL (0-450); Eosinophils Percent Auto 2.5 % (2-4); Hematocrit 37.9 % (36-46); Hemoglobin 12.7 g/dL (12.0-16.0); Lymphocytes Absolute Auto 1400 /uL (1100-4500); Lymphocytes Percent Auto 24.1 % (25-40); Mean Corpuscular HGB Conc 33.5 % (30-36); Mean Corpuscular Hemoglobin 31.6 PG (26-34); Mean Corpuscular Volume 94.1 fL (80-100); Monocytes Absolute Auto 400 /uL (0-900); Monocytes Percent Auto 6.6 % (3-14); Neutrophils Absolute Auto 3900 /uL (1500-7000); Neutrophils Percent Auto 65.9 % (50-75); Platelet Count 268 X10^3/uL (150-400); Red Blood Cell Count 4.03 X10^6/uL (4.0-5.2); Red Cell Distribution Width 14.2 % (11.6-14.8); White Blood Cell Count 5.9 X10^3/uL (4.5-11.0)
[2021-02-04 13:45] LABS: Alanine Aminotransferase 25 IU/L (<35); Albumin 4.4 g/dL (3.5-5.0); Albumin Globulin Ratio 1.6 (1.0-2.8); Alkaline Phosphatase 80 U/L (38-126); Aspartate Aminotransferase 33 IU/L (14-36); Bilirubin Total 0.3 mg/dL (0.2-1.3); Blood Urea Nitrogen 20 mg/dL (7-17); Calcium 9.8 mg/dL (8.4-10.2); Carbon Dioxide 28 mmol/L (22-32); Chloride 103 mmol/L (98-107); Cholesterol 248 mg/dL (140-199); Estimated Glomerular Filt Rate > 60.0 mL/min (>60); Globulin 2.8 g/dL (1.7-4.1); Glucose 91 mg/dL (80-110); HDL Cholesterol 108 mg/dL (40-60); HEMOLYSIS < 15 (0-50); LDL Cholesterol Calculated 129 mg/dL (<100); Potassium 4.2 mmol/L (3.4-5.1); Sodium 138 mmol/L (137-145); Total Protein 7.2 g/dL (6.3-8.2); Triglycerides 53 mg/dL (35-150)
[2021-02-04 16:51] LABS: TSH w/ Reflex to FT4 0.54 uIU/mL (0.47-4.68)
== END ==
PROVIDERS: PCP Family Medicine; Referring Provider Family Medicine; Visit Provider Family Medicine
DX: D72.829 Elevated white blood cell count, unspecified (principal); E78.2 Mixed hyperlipidemia
CPT/HCPCS: 36415; 80053; 80061; 84443; 85025

== ENCOUNTER → 2021-02-12 13:33 | Outpatient (CLI) | payer OTHER, SELFPAY | PROVIDERS: PCP Family Medicine; Referring Provider Family Medicine; Visit Provider Family Medicine | DX: M81.0 Age-related osteoporosis without current pathological fracture (principal); Z13.820 Encounter for screening for osteoporosis; Z78.0 Asymptomatic menopausal state; E78.2 Mixed hyperlipidemia; D72.829 Elevated white blood cell count, unspecified | CPT/HCPCS: 77080 ==

== ENCOUNTER → 2021-04-06 10:21 | Outpatient (CLI) | payer OTHER, SELFPAY ==
[2021-04-06 11:40] LABS: COVID19 -Nasal RAPID Negative (Negative)
== END ==
PROVIDERS: PCP Family Medicine; Visit Provider Physician Assistant
DX: Z01.812 Encounter for preprocedural laboratory examination (principal); Z20.822 Contact with and (suspected) exposure to COVID-19
CPT/HCPCS: 87635; C9803

== ENCOUNTER 2021-04-07 06:57 | Day surgery (SDC) | payer OTHER, SELFPAY ==
[2021-04-07 07:11] VITALS: BP 125/79; PULSE 73; RESP 16; TEMP 36.4; O2SAT 100; BMI 20.7
--- NOTE | 2021-04-07 07:55 | PM.HP.1 ---
History of Present Illness History of Present Illness Date Patient Seen: 04/07/21 Time Patient Seen: 07:55 Chief complaint: SDC Narrative: I reviewed Dr Villalobos's note. Family hx of CRC in sister Patient History Surgical History History of carpal tunnel repair Family & Social History Family History Mother Stroke Hypertension Smoker Family history unavailable: No Social History: household members spouse Tobacco & Substance use: Smoking Status Never smoker alcohol intake current Substance Use Type does not use Meds Home Medications and Allergies Home Medications Medication Instructions Recorded Confirmed Type cholecalciferol (vitamin D3) PO 01/21/20 02/04/21 History lisinopril 10 mg tablet 10 mg PO DAILY #30 tab 03/11/21 04/07/21 Rx conjugated estrogens 0.625 mg/gram 0.625 mg VAGINAL DAILY #30 g 03/12/21 04/07/21 Rx vaginal cream (Premarin) Allergies Allergy/AdvReac Type Severity Reaction Status Date / Time No Known Drug Allergies Allergy Verified 04/07/21 07:06 Review of Systems Review of Systems ROS: Yes All systems reviewed with the patient and are negative except as otherwise documented Exam Vital Signs (past 8 hours): - 04/07/21 07:11 Temperature 97.6 F Pulse Rate 73 Respiratory Rate 16 Blood Pressure 125/79 Pulse Oximetry 100 Oxygen Delivery Method Room Air Const General: cooperative and comfortable Orientation: alert HENMT Head: normocephalic Ears: external ears normal Nose: external nose normal Face and sinus: normal facial exam Mouth: oral mucosae normal Eyes General: appearance normal, both eyes and all related structures Neck Neck: normal visual inspection Chest Chest: normal inspection of the chest Resp Effort & Inspection: normal respiratory effort Auscultation: clear to auscultation bilaterally Cardio Rate: regular rate Rhythm: regular rhythm Heart Sounds: no murmurs GI Inspection: normal to inspection Palpation: soft and No tender Auscultation: normal bowel sounds Skin General: no rashes or lesions noted and No jaundice Neuro General: patient alert and moves all extremities Cognition: normal cognition Speech: speech normal Extrem General: no pedal edema Psych Appearance: grossly normal Assessment & Plan Assessment & Plan narrative: family hx of colon cancer. proceed with colonoscopy.
--- NOTE | 2021-04-07 07:58 | PM.PREOP ---
Pre-operative Note COVID-19 COVID-19 status: Negative Result date/Date tested (Pos, Neg/Pending): 04/06/21 Interval Note History & Physical reviewed/Exam performed by Physician: Yes Changes to H&P: No ASA Class (for procedural sedation): II
[2021-04-07] MEDS: MIDAZOLAM 5 MG/5 ML VIAL IV (08:30)
[2021-04-07] MEDS: fentaNYL 250 MCG/5 ML INJ IV (08:30)
--- NOTE | 2021-04-07 08:45 | PM.OP.ENDO ---
Operative Date/Time/Diagnoses Date of procedure: 04/07/21 Time of procedure: 08:45 Pre-op diagnosis: family hx crc Post-op diagnosis: same Procedure & Clinicians Study performed: colonoscopy Same procedure as scheduled: Yes Indications: family hx of colon cancer Surgeon: Jair Angelo Procedure Notes SCOAP/Timeout: Done Procedure in detail: After the risks and benefits were explained, written and verbal informed consent was obtained. The patient was brought into the procedure room and placed into the left lateral decubitus position. Conscious sedation medication was applied as per nursing documentation. Digital rectal examination was accomplished. The scope was introduced into the patient and advanced under direct visualization to the cecum as identified by the appendiceal orifice and ileocecal valve. The scope was slowly withdrawn to carefully examine the mucosa for any defects or lesions. Comprehensive imaging was accomplished throughout the rectum including the dentate line. The colon was decompressed, the scope was then removed from the patient who tolerated the procedure well. 150mcg Fentanyl, 7mg versed Prep excellent Scope withdrawal time: 7min Sedation minutes: 40 Impression: Patient had an internal hemorrhoid that could easily be palpated on digital rectal exam. This was soft. This was visible with direct endoscopic views and in the retroflexed position.. The patient had an extremely tortuous challenging navigation. Much of our prolonged procedure time was spent attempting to navigate to cecum. With patient position changes the use of the stiffening device and application of pressure to the abdomen we were able to successfully arrive in the cecum. I did not encounter any significant polyps mass lesions or inflammatory features throughout. Endoscopic diagnosis 1. Tortuous colon 2. Hemorrhoids Post-procedure Recommendations: Colonscopy in 5 years Plan for aftercare: In light of the family history, repeat colonoscopy is suggested for 5 years time. Disposition: PACU
[2021-04-07 08:50] VITALS: BP 101/38; PULSE 72; RESP 15; TEMP 36.6; O2SAT 99
[2021-04-07 08:55] VITALS: BP 115/73; PULSE 70; RESP 15; O2SAT 99
[2021-04-07 09:00] VITALS: BP 100/60; PULSE 74; RESP 16; O2SAT 99
[2021-04-07 09:05] VITALS: BP 104/57; PULSE 65; RESP 16; O2SAT 99
== END 2021-04-07 09:10 | disposition home or self-care (01) ==
PROVIDERS: PCP Family Medicine; Referring Provider Internal Medicine Gastroenterology; Visit Provider Internal Medicine Gastroenterology
PROC: 0DJD8ZZ Inspection of Lower Intestinal Tract, Via Natural or Artificial Opening Endoscopic (ICD-10-PCS; CPT 45378; principal; 2021-04-07 08:00)
DX: Z12.11 Encounter for screening for malignant neoplasm of colon (principal); Z80.0 Family history of malignant neoplasm of digestive organs; K64.9 Unspecified hemorrhoids
CPT/HCPCS: G0105; J2250; J3010

== ENCOUNTER → 2021-10-14 10:48 | Outpatient (CLI) | payer OTHER, SELFPAY ==
--- NOTE | 2021-10-14 | DI.MG.S_ITS ---
BILATERAL DIGITAL SCREENING MAMMOGRAM 3D/2D WITH CAD: 10/14/2021 CLINICAL: Routine screening. Comparison is made to exams dated: 10/11/2019 mammogram, 11/07/2017 mammogram, and 07/14/2016 mammogram - [facility]. The tissue of both breasts is heterogeneously dense. This may lower the sensitivity of mammography. Current study was also evaluated with a Computer Aided Detection (CAD) system. There are benign vascular calcifications in both breasts. No significant masses, calcifications, or other findings are seen in either breast. There has been no significant interval change. IMPRESSION: BENIGN There is no mammographic evidence of malignancy. A 1 year screening mammogram is recommended. This exam was interpreted at Station ID: [id number]. NOTE: For mammograms, a report in lay terms will be sent to the patient. Approximately 15% of breast malignancies will not be visualized mammographically. In the management of a palpable breast mass, a negative mammogram must not discourage biopsy of a clinically suspicious lesion. Electronically Signed By: Ubaldo Cooper acr/raghu:10/14/2021 11:08:15 letter sent: Normal Exam ACR BI-RADS Category 2: Benign Finding(s) 3342F
== END ==
PROVIDERS: PCP Family Medicine; Referring Provider Family Medicine; Visit Provider Family Medicine
DX: Z12.31 Encounter for screening mammogram for malignant neoplasm of breast (principal)
CPT/HCPCS: 77063; 77067

== ENCOUNTER → 2022-04-01 08:17 | Outpatient (CLI) | payer OTHER, SELFPAY ==
[2022-04-01 09:03] LABS: Add Manual Diff / Slide Review NO; Basophils Absolute Auto 100 /uL (0-100); Basophils Percent Auto 1.5 % (0-2); Eosinophils Absolute Auto 100 /uL (0-450); Eosinophils Percent Auto 3.8 % (2-4); Lymphocytes Absolute Auto 1300 /uL (1100-4500); Lymphocytes Percent Auto 35.8 % (25-40); Mean Corpuscular HGB Conc 33.3 % (30-36); Mean Corpuscular Hemoglobin 31.3 PG (26-34); Monocytes Absolute Auto 400 /uL (0-900); Monocytes Percent Auto 10.4 % (3-14); Neutrophils Absolute Auto 1800 /uL (1500-7000); Neutrophils Percent Auto 48.5 % (50-75); Platelet Count 303 X10^3/uL (150-400); Red Blood Cell Count 3.83 X10^6/uL (4.0-5.2); Red Cell Distribution Width 14.1 % (11.6-14.8); White Blood Cell Count 3.7 X10^3/uL (4.5-11.0)
[2022-04-01 09:42] LABS: Alanine Aminotransferase 15 IU/L (<35); Albumin 4.2 g/dL (3.5-5.0); Albumin Globulin Ratio 1.6 (1.0-2.8); Alkaline Phosphatase 63 U/L (38-126); Aspartate Aminotransferase 25 IU/L (14-36); BUN Creatinine Ratio 18.7 (6-22); Bilirubin Total 0.7 mg/dL (0.2-1.3); Blood Urea Nitrogen 17 mg/dL (7-17); Calcium 9.2 mg/dL (8.4-10.2); Carbon Dioxide 30 mmol/L (22-32); Chloride 102 mmol/L (98-107); Cholesterol 227 mg/dL (140-199); Estimated Glomerular Filt Rate > 60 mL/min (>60); Globulin 2.6 g/dL (1.7-4.1); Glucose 89 mg/dL (80-110); HDL Cholesterol 94 mg/dL (40-60); HEMOLYSIS < 15 (0-50); LDL Cholesterol Calculated 121 mg/dL (<100); Potassium 4.6 mmol/L (3.4-5.1); Sodium 138 mmol/L (137-145); Total Protein 6.8 g/dL (6.3-8.2); Triglycerides 61 mg/dL (35-150)
[2022-04-01 10:04] LABS: Thyroid Stimulating Hormone 0.443 uIU/mL (0.47-4.68)
== END ==
PROVIDERS: PCP Family Medicine; Referring Provider Family Medicine; Visit Provider Family Medicine
DX: D72.829 Elevated white blood cell count, unspecified (principal); E78.2 Mixed hyperlipidemia
CPT/HCPCS: 36415; 80053; 80061; 84443; 85025

== ENCOUNTER → 2022-10-29 11:32 | Outpatient (CLI) | payer OTHER, SELFPAY ==
--- NOTE | 2022-10-29 | DI.MG.S_ITS ---
BILATERAL DIGITAL SCREENING MAMMOGRAM 3D/2D WITH CAD: 10/29/2022 CLINICAL: Routine screening. Comparison is made to exams dated: 10/14/2021 mammogram, 10/11/2019 mammogram, and 11/07/2017 mammogram - [facility]. Both breasts are heterogeneously dense, which may obscure small masses (category c / 51-75% glandular tissue). Current study was also evaluated with a Computer Aided Detection (CAD) system. There are benign vascular calcifications in both breasts. No significant masses, calcifications, or other findings are seen in either breast. There has been no significant interval change. IMPRESSION: BENIGN There is no mammographic evidence of malignancy. A 1 year screening mammogram is recommended. Based on the Tyrer Cuzick model (a risk assessment model) the patient's lifetime risk is 4.4% and her 10 year risk is 3.3%. According to the ACR, ACS, and NCCN guidelines, an annual breast MRI exam along with mammogram is recommended if the patient's lifetime risk is 20% or greater. This exam was interpreted at Station ID: [id number]. NOTE: For mammograms, a report in lay terms will be sent to the patient. Approximately 15% of breast malignancies will not be visualized mammographically. In the management of a palpable breast mass, a negative mammogram must not discourage biopsy of a clinically suspicious lesion. Electronically Signed By: Maggie trimble/raghu:10/29/2022 16:08:31 letter sent: Normal Exam ACR BI-RADS Category 2: Benign Finding(s) 3342F
== END ==
PROVIDERS: PCP Family Medicine; Referring Provider Family Medicine; Visit Provider Family Medicine
DX: Z12.31 Encounter for screening mammogram for malignant neoplasm of breast (principal)
CPT/HCPCS: 77063; 77067

== ENCOUNTER → 2023-04-18 07:40 | Outpatient (CLI) | payer OTHER, SELFPAY ==
[2023-04-18 08:42] LABS: Add Manual Diff / Slide Review NO; Basophils Absolute Auto 100 /uL (0-100); Basophils Percent Auto 1.1 % (0-2); Eosinophils Absolute Auto 200 /uL (0-450); Eosinophils Percent Auto 4.4 % (2-4); Hematocrit 36.7 % (36-46); Hemoglobin 12.3 g/dL (12.0-16.0); Lymphocytes Absolute Auto 1800 /uL (1100-4500); Lymphocytes Percent Auto 38.8 % (25-40); Mean Corpuscular HGB Conc 33.6 % (30-36); Mean Corpuscular Hemoglobin 31.3 PG (26-34); Mean Corpuscular Volume 93.2 fL (80-100); Monocytes Absolute Auto 500 /uL (0-900); Monocytes Percent Auto 10.3 % (3-14); Neutrophils Absolute Auto 2200 /uL (1500-7000); Neutrophils Percent Auto 45.4 % (50-75); Platelet Count 290 X10^3/uL (150-400); Red Blood Cell Count 3.94 X10^6/uL (4.0-5.2); Red Cell Distribution Width 13.9 % (11.6-14.8); White Blood Cell Count 4.7 X10^3/uL (4.5-11.0)
[2023-04-18 10:43] LABS: Alanine Aminotransferase 18 IU/L (<35); Albumin 4.3 g/dL (3.5-5.0); Albumin Globulin Ratio 1.5 (1.0-2.8); Alkaline Phosphatase 62 U/L (38-126); Aspartate Aminotransferase 25 IU/L (14-36); BUN Creatinine Ratio 26.7 (6-22); Bilirubin Total 0.4 mg/dL (0.2-1.3); Blood Urea Nitrogen 23 mg/dL (7-17); Calcium 9.6 mg/dL (8.4-10.2); Carbon Dioxide 29 mmol/L (22-32); Chloride 103 mmol/L (98-107); Cholesterol 253 mg/dL (140-199); Estimated Glomerular Filt Rate > 60 mL/min (>60); Globulin 2.8 g/dL (1.7-4.1); Glucose 90 mg/dL (80-110); HDL Cholesterol 98 mg/dL (40-60); HEMOLYSIS < 15 (0-50); LDL Cholesterol Calculated 140 mg/dL (<100); Potassium 4.5 mmol/L (3.4-5.1); Sodium 138 mmol/L (137-145); Total Protein 7.1 g/dL (6.3-8.2); Triglycerides 74 mg/dL (35-150)
[2023-04-18 11:06] LABS: TSH w/ Reflex to FT4 2.21 uIU/mL (0.47-4.68)
== END ==
PROVIDERS: PCP Family Medicine; Referring Provider Family Medicine; Visit Provider Family Medicine
DX: D72.829 Elevated white blood cell count, unspecified (principal); E78.2 Mixed hyperlipidemia
CPT/HCPCS: 36415; 80053; 80061; 84443; 85025

== ENCOUNTER 2023-12-14 01:22 | Emergency (ER) | payer OTHER, SELFPAY ==
[2023-12-14 01:25] VITALS: BP 143/85; PULSE 76; RESP 18; TEMP 36.4; O2SAT 97
[2023-12-14 01:46] LABS: Appearance Urine UA TURBID; Bilirubin Urine UA NEGATIVE (NEGATIVE); Color Urine UA RED; Glucose Urine UA NEGATIVE (Negative); Ketones Urine UA NEGATIVE (NEGATIVE); Leukocyte Esterase Urine UA 1+ (NEGATIVE); Nitrite Urine UA NEGATIVE (Negative); Occult Blood Urine UA 3+ (Negative); Protein Urine UA 3+ (Negative); Urobilinogen Urine UA 0.2 E.U./dL (0.2); pH Urine UA 6.5 (4.5-8.0)
[2023-12-14 01:47] LABS: Bacteria Urine Occasional (0-1); RBC Urine >100/HPF (0-5/HPF); Urine Volume 10mL (spun); WBC Urine 0-1/HPF (0-5/HPF)
[2023-12-14 01:48] LABS: Squamous Epithelial Cell Urine 0-1 /HPF (0-5/HPF)
--- NOTE | 2023-12-14 02:11 | ED.GENADULT ---
HPI - General Adult General Chief complaint: Urogenital-Female Stated complaint: thinks bladder infection Time Seen by Provider: 12/14/23 01:32 Source: patient Mode of arrival: Ambulatory History of Present Illness HPI narrative: Patient is a 73-year-old female. Does not get frequent urinary tract infections however over the past several hours has developed urinary frequency, dysuria and dark-colored urine. She denies any fevers. No trauma. She has been riding a bicycle frequently over the past couple days. No change in bowel habits. Related Data Previous Rx's Medication Instructions Recorded conjugated estrogens 0.625 mg/gram 0.625 mg vaginal DAILY #30 grams 04/14/23 vaginal cream (Premarin) lisinopril 10 mg tablet See Rx Instructions .Route 04/14/23 .COMPLEX #90 tabs permethrin 5 % topical cream 1 applic topical ONCE #120 grams 08/02/23 (Elimite) nitrofurantoin 100 mg PO Q12H 5 days #10 caps 12/14/23 monohydrate/macrocrystals 100 mg capsule (Macrobid) phenazopyridine 100 mg tablet 100 mg PO TID PRN pain 6 doses #6 12/14/23 (Pyridium) tabs Allergies Allergy/AdvReac Type Severity Reaction Status Date / Time No Known Drug Allergies Allergy Verified 08/02/23 11:29 Review of Systems Constitutional Constitutional: Reports system reviewed and no additional complaints, except as documented Gastrointestinal Gastrointestinal: Reports system reviewed and no additional complaints, except as documented Genitourinary Genitourinary: Reports system reviewed and no additional complaints, except as documented Integumentary/Breasts Skin/Breast: Reports system reviewed and no additional complaints, except as documented Patient History Surgical History History of carpal tunnel repair Family History Mother Stroke Hypertension Smoker Social History marital status: household members: spouse Smoking Status: Never smoker alcohol intake: current substance use type: does not use Smoking Status: Never smoker alcohol intake frequency: 0-2 drinks per day Substance Use Type: does not use Exam Initial Vital Signs Initial Vital Signs: Vital Signs Temperature 97.6 F 12/14/23 01:25 Pulse Rate 76 12/14/23 01:25 Respiratory Rate 18 12/14/23 01:25 Blood Pressure 143/85 H 12/14/23 01:25 Pulse Oximetry 97 12/14/23 01:25 Oxygen Delivery Method Room Air 12/14/23 01:25 [facility] Head: normal to inspection Resp Effort & Inspection: normal respiratory effort Cardio Rate: regular rate GI Inspection: non-distended Skin General: no rashes or lesions noted Neuro General: patient alert and patient awake Course Orders Ordered: ED Orders 12/14/23 01:30 Urinalysis and Microscopic Stat Urine Culture Stat 12/14/23 02:15 Basic Metabolic Panel Stat Complete Blood Count AUTO DIFF Stat Vital Signs Vital signs: Vital Signs - 8 hr 12/14/23 01:25 12/14/23 03:07 Temperature 97.6 F Pulse Rate 76 78 Respiratory Rate 18 18 Blood Pressure 143/85 H 144/81 H Pulse Oximetry 97 99 Oxygen Delivery Method Room Air Room Air Medical Decision Making Lab Data Lab results reviewed: Yes I reviewed the patient's lab results. 12/14/23 02:15 12/14/23 02:15 Labs: Lab Results 12/14/23 12/14/23 Range/Units 01:30 02:15 WBC 7.5 (4.5-11.0) X10^3/uL RBC 3.96 L (4.0-5.2) X10^6/uL Hgb 12.5 (12.0-16.0) g/dL Hct 37.3 (36-46) % MCV 94.3 (80-100) fL MCH 31.7 (26-34) PG MCHC 33.6 (30-36) % RDW 14.2 (11.6-14.8) % Plt Count 285 (150-400) X10^3/uL Neut % (Auto) 65.5 (50-75) % Lymph % (Auto) 20.3 L (25-40) % [place] % (Auto) 9.9 (3-14) % Eos % (Auto) 3.3 (2-4) % Baso % (Auto) 1.0 (0-2) % Neut # (Auto) 4900 (1039-8846) /uL Lymph # (Auto) 1500 (1882-8742) /uL [place] # (Auto) 700 (0-900) /uL Eos # (Auto) 300 (0-450) /uL Baso # (Auto) 100 (0-100) /uL Sodium 136 L (137-145) mmol/L Potassium 4.2 (3.4-5.1) mmol/L Chloride 103 (98-107) mmol/L Carbon Dioxide 27 (22-32) mmol/L BUN 22 H (7-17) mg/dL Creatinine 0.82 (0.52-1.04) mg/dL Estimated GFR > 60 (>60) mL/min BUN/Creatinine Ratio 26.8 H (6-22) Glucose 111 H (80-110) mg/dL Calcium 9.7 (8.4-10.2) mg/dL Urine Color Red Urine Appearance Turbid Urine pH 6.5 (4.5-8.0) Ur Specific [place] 1.020 (1.000-1.035) Urine Protein 3+ H (Negative) Urine Glucose (UA) Negative (Negative) g/dL Urine Ketones Negative (NEGATIVE) Urine Occult Blood 3+ H (Negative) Urine Nitrate Negative (Negative) Urine Bilirubin Negative (NEGATIVE) Urine Urobilinogen 0.2 (0.2) E.U./dL Ur Leukocyte Esterase 1+ H (NEGATIVE) Urine RBC >100/hpf H (0-5/HPF) Urine WBC 0-1/hpf (0-5/HPF) Ur Squamous Epith Cells 0-1 /hpf (0-5/HPF) Urine Bacteria Occasional (0-1) (None) Vol Urine Centrifuged 10ml (spun) MDM Narrative Medical decision making narrative: Patient does not get frequent urinary tract infections. Symptoms were relatively sudden onset. She does have hematuria but no leukocytosis and very small amount of bacteria. No recent illnesses. No sore throat. No trauma to the urogenital system. Kidney function is unremarkable. I suspect that the dysuria that she is having is most likely related to the hematuria. The question is whether not this hematuria is related to an infection. The urinalysis would not be consistent with a infection. There is a urine culture that is pending. The plan will be is to discharge the patient home with a printed prescription for antibiotics. She was going to hold on filling and taking this prescription. She was going to increase her fluid intake. So that she is urinating frequently as this may clear the hematuria. If her symptoms persist over the next 12-24 hours then she can fill the prescription and start taking it as directed. We will wait for the urine culture as well. She was advised to follow-up with her primary doctor for repeat urinalysis to ensure that the hematuria has cleared. She was given return precautions. She expressed understanding and agreement. Discharge Plan Departure Patient Disposition: Home Clinical Impression: Hematuria Instructions: DI for Hematuria Activity Restrictions/Additional Instructions: I do recommend that you use the Pyridium as needed for discomfort. Be sure that your increasing your fluid intake. If your symptoms resolve over the next 24-48 hours then do not fill the antibiotics. You are going to need a follow-up with your primary doctor. If your symptoms are not improving then please fill the antibiotic prescription and start taking it as directed. There is a urine culture pending at the time of your discharge him we will contact you for the results of this. Return to the emergency department for new symptoms. Prescriptions: New phenazopyridine [Pyridium] 100 mg tablet 100 mg PO TID PRN (Reason: pain) Qty: 6 0RF nitrofurantoin monohyd/m-cryst [Macrobid] 100 mg capsule 100 mg PO Q12H 5 Days Qty: 10 0RF Rx Instructions: must administer with a meal/food No Action Premarin 0.625 mg/gram cream 0.625 mg vaginal DAILY Qty: 30 3RF Rx Instructions: nightly for two weeks then 3 times a week lisinopril 10 mg tablet See Rx Instructions .ROUTE .COMPLEX Qty: 90 3RF Dose Instruction: TAKE ONE TABLET BY MOUTH ONCE DAILY Rx Instructions: TAKE ONE TABLET BY MOUTH ONCE DAILY permethrin [Elimite] 5 % cream 1 applic topical ONCE Qty: 120 0RF Rx Instructions: leave on for 8 to14 hrs before washing off Referrals: Gael Colorado MD [Primary Care Provider] - Stand Alone Forms: Patient Portal/API
[2023-12-14 02:29] LABS: Add Manual Diff / Slide Review NO; Basophils Absolute Auto 100 /uL (0-100); Eosinophils Absolute Auto 300 /uL (0-450); Eosinophils Percent Auto 3.3 % (2-4); Hematocrit 37.3 % (36-46); Hemoglobin 12.5 g/dL (12.0-16.0); Lymphocytes Absolute Auto 1500 /uL (1100-4500); Lymphocytes Percent Auto 20.3 % (25-40); Mean Corpuscular HGB Conc 33.6 % (30-36); Mean Corpuscular Hemoglobin 31.7 PG (26-34); Mean Corpuscular Volume 94.3 fL (80-100); Monocytes Absolute Auto 700 /uL (0-900); Monocytes Percent Auto 9.9 % (3-14); Neutrophils Absolute Auto 4900 /uL (1500-7000); Neutrophils Percent Auto 65.5 % (50-75); Platelet Count 285 X10^3/uL (150-400); Red Blood Cell Count 3.96 X10^6/uL (4.0-5.2); Red Cell Distribution Width 14.2 % (11.6-14.8); White Blood Cell Count 7.5 X10^3/uL (4.5-11.0)
[2023-12-14 02:39] LABS: BUN Creatinine Ratio 26.8 (6-22); Blood Urea Nitrogen 22 mg/dL (7-17); Calcium 9.7 mg/dL (8.4-10.2); Carbon Dioxide 27 mmol/L (22-32); Chloride 103 mmol/L (98-107); Estimated Glomerular Filt Rate > 60 mL/min (>60); Glucose 111 mg/dL (80-110); HEMOLYSIS < 15 (0-50); Potassium 4.2 mmol/L (3.4-5.1); Sodium 136 mmol/L (137-145)
[2023-12-14 03:07] VITALS: BP 144/81; PULSE 78; RESP 18; O2SAT 99
== END 2023-12-14 03:11 | disposition home or self-care (01) ==
PROVIDERS: Emergency Provider Emergency Medicine; PCP Family Medicine
DX: R35.0 Frequency of micturition (principal); R31.9 Hematuria, unspecified
CPT/HCPCS: 36415; 80048; 81001; 85025; 87086; 99283

== ENCOUNTER → 2023-12-29 07:47 | Outpatient (CLI) | payer OTHER, SELFPAY ==
--- NOTE | 2023-12-29 07:49 | DI.US.S_ITS ---
PROCEDURE: US RENAL COMPLETE INDICATIONS: Gross hematuria - painless TECHNIQUE: Real-time scanning was performed of the kidneys and bladder, with image documentation. COMPARISON: None. FINDINGS: Kidneys: Kidneys are small in size. Right kidney measures 8.4 cm long; left kidney measures 7.6 cm long. Right renal cortical thickness is 0.7 cm; left renal cortical thickness is 0.9 cm. Renal cortical echotexture is normal. No hydronephrosis or nephrolithiasis. No suspicious solid mass lesions. Bladder: Pre-void bladder volume is 33 mL. Post-void residual is 2 mL. Pre-void images demonstrate no intraluminal masses or stones. On pre-void images, no ureteral jets are noted with color Doppler interrogation. (Of note, ureteral jets may not be detectable in up to 25% of cases due to insufficient differences in specific gravity between ureteral and bladder urine). Miscellaneous: No free pelvic fluid. IMPRESSION: 1. No hydronephrosis or sonographic evidence of nephrolithiasis bilaterally. 2. Bilateral kidneys are small in size with cortical thinning which may represent sequela of remote infection or inflammation versus medical renal disease. 3. Bladder is decompressed, limiting evaluation. Dictated by: Diane Bradley M.D. on 12/29/2023 at 12:59 Approved by: Diane Bradley M.D. on 12/29/2023 at 13:06
== END ==
LOC: US 07:48
PROVIDERS: PCP Family Medicine; Referring Provider Family Medicine; Visit Provider Family Medicine
DX: R31.9 Hematuria, unspecified (principal); R10.2 Pelvic and perineal pain
CPT/HCPCS: 76770

== ENCOUNTER → 2024-01-20 10:56 | Outpatient (CLI) | payer OTHER, SELFPAY ==
--- NOTE | 2024-01-20 | DI.MG.S_ITS ---
BILATERAL DIGITAL SCREENING MAMMOGRAM 3D/2D WITH CAD: 01/20/2024 CLINICAL: Routine screening. Comparison is made to exams dated: 10/29/2022 mammogram, 10/14/2021 mammogram, and 10/11/2019 mammogram - [facility]. There are scattered areas of fibroglandular density in both breasts (category b / 25%-50% glandular tissue). Current study was also evaluated with a Computer Aided Detection (CAD) system. There are benign vascular calcifications in both breasts. No significant masses, calcifications, or other findings are seen in either breast. There has been no significant interval change. IMPRESSION: BENIGN There is no mammographic evidence of malignancy. A 1 year screening mammogram is recommended. Based on the Tyrer Cuzick model (a risk assessment model) the patient's lifetime risk is 2.7% and her 10 year risk is 2.2%. According to the ACR, ACS, and NCCN guidelines, an annual breast MRI exam along with mammogram is recommended if the patient's lifetime risk is 20% or greater. This exam was interpreted at Station ID: [id number]. NOTE: For mammograms, a report in lay terms will be sent to the patient. Approximately 15% of breast malignancies will not be visualized mammographically. In the management of a palpable breast mass, a negative mammogram must not discourage biopsy of a clinically suspicious lesion. Electronically Signed By: Maggie trimble/raghu:01/20/2024 14:26:44 letter sent: Normal Exam ACR BI-RADS Category 2: Benign Finding(s) 3342F
== END ==
PROVIDERS: PCP Family Medicine; Referring Provider Family Medicine; Visit Provider Family Medicine
DX: Z12.31 Encounter for screening mammogram for malignant neoplasm of breast (principal); R92.323 Mammographic fibroglandular density, bilateral breasts
CPT/HCPCS: 77063; 77067

== ENCOUNTER → 2024-01-23 10:28 | Outpatient (CLI) | payer OTHER, SELFPAY ==
[2024-01-23 10:57] LABS: Add Manual Diff / Slide Review NO; Basophils Absolute Auto 100 /uL (0-100); Basophils Percent Auto 0.7 % (0-2); Eosinophils Absolute Auto 200 /uL (0-450); Hematocrit 39.9 % (36-46); Hemoglobin 13.4 g/dL (12.0-16.0); Lymphocytes Absolute Auto 2400 /uL (1100-4500); Lymphocytes Percent Auto 31.4 % (25-40); Mean Corpuscular HGB Conc 33.5 % (30-36); Mean Corpuscular Hemoglobin 31.6 PG (26-34); Mean Corpuscular Volume 94.4 fL (80-100); Monocytes Absolute Auto 700 /uL (0-900); Neutrophils Absolute Auto 4200 /uL (1500-7000); Neutrophils Percent Auto 55.9 % (50-75); Platelet Count 334 X10^3/uL (150-400); Red Blood Cell Count 4.23 X10^6/uL (4.0-5.2); Red Cell Distribution Width 14.2 % (11.6-14.8); White Blood Cell Count 7.5 X10^3/uL (4.5-11.0)
[2024-01-23 11:30] LABS: Alanine Aminotransferase 19 IU/L (<35); Albumin 4.9 g/dL (3.5-5.0); Albumin Globulin Ratio 1.4 (1.0-2.8); Alkaline Phosphatase 74 U/L (38-126); Aspartate Aminotransferase 32 IU/L (14-36); BUN Creatinine Ratio 26.3 (6-22); Bilirubin Total 0.4 mg/dL (0.2-1.3); Blood Urea Nitrogen 20 mg/dL (7-17); Carbon Dioxide 30 mmol/L (22-32); Chloride 104 mmol/L (98-107); Estimated Glomerular Filt Rate > 60 mL/min (>60); Globulin 3.4 g/dL (1.7-4.1); Glucose 111 mg/dL (80-110); HEMOLYSIS < 15 (0-50); Potassium 4.2 mmol/L (3.4-5.1); Sodium 139 mmol/L (137-145); Total Protein 8.3 g/dL (6.3-8.2)
[2024-01-23 11:53] LABS: Appearance Urine UA SL CLOUDY; Bilirubin Urine UA NEGATIVE (NEGATIVE); Color Urine UA YELLOW; Glucose Urine UA NEGATIVE (Negative); Ketones Urine UA NEGATIVE (NEGATIVE); Leukocyte Esterase Urine UA 3+ (NEGATIVE); Nitrite Urine UA NEGATIVE (Negative); Occult Blood Urine UA TRACE-INTACT (Negative); Protein Urine UA NEGATIVE (Negative); Specific Gravity Urine UA <=1.005 (1.000-1.035); Urobilinogen Urine UA 0.2 E.U./dL (0.2)
[2024-01-23 12:20] LABS: Urine Volume 10mL (spun); pH Urine UA 5.5 (4.5-8.0)
[2024-01-23 12:21] LABS: Bacteria Urine None Seen; RBC Urine None Seen (0-5/HPF); Squamous Epithelial Cell Urine 0-1 /HPF (0-5/HPF); WBC Urine 30-100/HPF (0-5/HPF)
== END ==
LOC: LAB 10:28
PROVIDERS: PCP Family Medicine; Referring Provider Family Medicine; Visit Provider Family Medicine
DX: R80.9 Proteinuria, unspecified (principal)
CPT/HCPCS: 36415; 80053; 81001; 85025

== ENCOUNTER → 2024-01-25 14:43 | Outpatient (CLI) | payer OTHER, SELFPAY ==
--- NOTE | 2024-01-25 14:44 | DI.CT.S_ITS ---
PROCEDURE: CT KIDNEY URETER BLADDER (KUB) INDICATIONS: hematuria and proteniuria TECHNIQUE: Axial sections were acquired from the lung bases to the pubic symphysis. Coronal and sagittal reformats were performed. For radiation dose reduction, the following was used: automated exposure control, adjustment of mA and/or kV according to patient size. COMPARISON: None. FINDINGS: Image quality: Diagnostic. Lower Chest: No significant findings. URINARY: Right Kidney: No stones or hydronephrosis. Right Ureter: No hydroureter. Left Kidney: No stones or hydronephrosis. Small junctional cortical defect on the posterior margin of the left kidney, indicating prior infection or vascular insult. Left Ureter: No hydroureter. Bladder: Normal wall thickness. No stones. ABDOMEN: Liver: No contour-deforming solid mass. Gallbladder: No radiopaque gallstones or wall thickening. Biliary ducts: No biliary dilation. Pancreas: No ductal dilation. Spleen: Size is within normal limits. Adrenal Glands: No adrenal nodules. Stomach and Bowel: Normal colonic caliber, without significant wall thickening. Fecal debris within the small bowel. No significant diverticular disease. Peritoneum: No abnormal intraperitoneal fluid. No free air. Ventral Wall: No hernia. Abdominal Nodes: No enlarged retroperitoneal or mesenteric lymph nodes. Vessels: Aorta and inferior vena cava are normal in size. PELVIS: Pelvic Organs: Unremarkable. Pelvic Nodes: Unremarkable. Miscellaneous: No inguinal hernias are seen. Bones: Unremarkable. IMPRESSION: No nephrolithiasis or hydronephrosis. Fecal debris within the small-bowel, usually indicating small intestinal bacterial overgrowth versus slow transit. Dictated by: Javier Sousa M.D. on 01/25/2024 at 16:09 Approved by: Javier Sousa M.D. on 01/25/2024 at 16:14
== END ==
PROVIDERS: PCP Family Medicine; Referring Provider Family Medicine; Visit Provider Family Medicine
DX: R80.9 Proteinuria, unspecified (principal)
CPT/HCPCS: 74176

== ENCOUNTER → 2024-04-12 08:17 | Outpatient (CLI) | payer OTHER, SELFPAY | PROVIDERS: PCP Family Medicine; Referring Provider Urology; Visit Provider Urology | DX: R39.9 Unspecified symptoms and signs involving the genitourinary system (principal) | CPT/HCPCS: 87077; 87086 ==

== ENCOUNTER → 2024-05-03 09:40 | Outpatient (CLI) | payer OTHER, SELFPAY ==
[2024-05-03 10:37] LABS: Add Manual Diff / Slide Review NO; Basophils Absolute Auto 100 /uL (0-100); Eosinophils Absolute Auto 300 /uL (0-450); Eosinophils Percent Auto 4.1 % (2-4); Hemoglobin 12.7 g/dL (12.0-16.0); Lymphocytes Absolute Auto 1700 /uL (1100-4500); Mean Corpuscular HGB Conc 33.6 % (30-36); Mean Corpuscular Hemoglobin 31.6 PG (26-34); Mean Corpuscular Volume 94.2 fL (80-100); Monocytes Absolute Auto 400 /uL (0-900); Monocytes Percent Auto 5.7 % (3-14); Neutrophils Absolute Auto 4400 /uL (1500-7000); Neutrophils Percent Auto 64.2 % (50-75); Platelet Count 378 X10^3/uL (150-400); Red Blood Cell Count 4.03 X10^6/uL (4.0-5.2); Red Cell Distribution Width 14.1 % (11.6-14.8); White Blood Cell Count 6.8 X10^3/uL (4.5-11.0)
[2024-05-03 11:07] LABS: Alanine Aminotransferase 25 IU/L (<35); Albumin 4.3 g/dL (3.5-5.0); Albumin Globulin Ratio 1.5 (1.0-2.8); Alkaline Phosphatase 84 U/L (38-126); Aspartate Aminotransferase 25 IU/L (14-36); BUN Creatinine Ratio 20.2 (6-22); Bilirubin Total 0.5 mg/dL (0.2-1.3); Blood Urea Nitrogen 17 mg/dL (7-17); Calcium 9.5 mg/dL (8.4-10.2); Carbon Dioxide 27 mmol/L (22-32); Chloride 102 mmol/L (98-107); Cholesterol 219 mg/dL (140-199); Estimated Glomerular Filt Rate > 60 mL/min (>60); Globulin 2.9 g/dL (1.7-4.1); Glucose 102 mg/dL (80-110); HDL Cholesterol 70 mg/dL (40-60); HEMOLYSIS < 15 (0-50); LDL Cholesterol Calculated 135 mg/dL (<100); Potassium 4.6 mmol/L (3.4-5.1); Sodium 135 mmol/L (137-145); Total Protein 7.2 g/dL (6.3-8.2); Triglycerides 68 mg/dL (35-150)
== END ==
PROVIDERS: PCP Family Medicine; Referring Provider Family Medicine; Visit Provider Family Medicine
DX: R80.9 Proteinuria, unspecified (principal); E78.2 Mixed hyperlipidemia; D72.829 Elevated white blood cell count, unspecified; R31.0 Gross hematuria
CPT/HCPCS: 36415; 80053; 80061; 84443; 85025

== ENCOUNTER → 2024-05-07 10:18 | Outpatient (CLI) | payer OTHER, SELFPAY ==
[2024-05-07 10:33] LABS: Appearance Urine UA CLEAR; Bilirubin Urine UA NEGATIVE (NEGATIVE); Color Urine UA YELLOW; Glucose Urine UA NEGATIVE (Negative); Ketones Urine UA NEGATIVE (NEGATIVE); Leukocyte Esterase Urine UA NEGATIVE (NEGATIVE); Nitrite Urine UA NEGATIVE (Negative); Occult Blood Urine UA NEGATIVE (Negative); Protein Urine UA NEGATIVE (Negative); Urobilinogen Urine UA 0.2 E.U./dL (0.2)
[2024-05-07 10:35] LABS: pH Urine UA 5.5 (4.5-8.0)
[2024-05-07 10:38] LABS: Bacteria Urine None Seen; RBC Urine None Seen (0-5/HPF); Squamous Epithelial Cell Urine None Seen (0-5/HPF); Urine Volume 10mL (spun); WBC Urine None Seen (0-5/HPF)
== END ==
PROVIDERS: PCP Family Medicine; Referring Provider Urology; Visit Provider Urology
DX: R80.9 Proteinuria, unspecified (principal); E78.2 Mixed hyperlipidemia; D72.829 Elevated white blood cell count, unspecified; R31.0 Gross hematuria
CPT/HCPCS: 81001

== ENCOUNTER → 2024-05-21 14:03 | Outpatient (CLI) | payer OTHER, SELFPAY ==
[2024-05-21 14:27] LABS: Appearance Urine UA CLEAR; Bilirubin Urine UA NEGATIVE (NEGATIVE); Color Urine UA YELLOW; Glucose Urine UA NEGATIVE (Negative); Ketones Urine UA NEGATIVE (NEGATIVE); Leukocyte Esterase Urine UA NEGATIVE (NEGATIVE); Nitrite Urine UA NEGATIVE (Negative); Occult Blood Urine UA NEGATIVE (Negative); Protein Urine UA NEGATIVE (Negative); Specific Gravity Urine UA 1.015 (1.000-1.035); Urobilinogen Urine UA 0.2 E.U./dL (0.2)
[2024-05-21 14:36] LABS: Bacteria Urine None Seen; Culture Indicated Urine Cult Not Indicated; RBC Urine None Seen (0-5/HPF); Squamous Epithelial Cell Urine 0-1 /HPF (0-5/HPF); Urine Volume Low Vol <10mL (spun); WBC Urine None Seen (0-5/HPF)
== END ==
LOC: LAB 14:04
PROVIDERS: PCP Family Medicine; Referring Provider Urology; Visit Provider Urology
DX: Z87.440 Personal history of urinary (tract) infections (principal)
CPT/HCPCS: 81001

== ENCOUNTER → 2025-06-03 07:36 | Outpatient (CLI) | payer OTHER, SELFPAY ==
[2025-06-03 08:34] LABS: Add Manual Diff / Slide Review NO; Hematocrit 38.3 % (36-46); Hemoglobin 12.8 g/dL (12.0-16.0); Lymphocytes Absolute Auto 1700 /uL (1100-4500); Mean Corpuscular HGB Conc 33.4 % (30-36); Mean Corpuscular Hemoglobin 31.4 PG (26-34); Mean Corpuscular Volume 94.0 fL (80-100); Platelet Count 282 X10^3/uL (150-400)
[2025-06-03 09:02] LABS: Alanine Aminotransferase 16 IU/L (<35); Albumin 4.2 g/dL (3.5-5.0); Albumin Globulin Ratio 1.6 (1.0-2.8); Alkaline Phosphatase 61 U/L (38-126); Blood Urea Nitrogen 17 mg/dL (7-17); Calcium 9.6 mg/dL (8.4-10.2); Carbon Dioxide 29 mmol/L (22-32); Chloride 103 mmol/L (98-107); Cholesterol 240 mg/dL (140-199); Estimated Glomerular Filt Rate > 60 mL/min (>60); Globulin 2.7 g/dL (1.7-4.1); Glucose 86 mg/dL (70-99); HDL Cholesterol 100 mg/dL (40-60); HEMOLYSIS < 15 (0-50); Potassium 4.6 mmol/L (3.4-5.1); Sodium 137 mmol/L (137-145); Total Protein 6.9 g/dL (6.3-8.2); Triglycerides 67 mg/dL (35-150)
[2025-06-03 09:33] LABS: Thyroid Stimulating Hormone 1.81 uIU/mL (0.47-4.68)
== END ==
PROVIDERS: PCP Family Medicine; Referring Provider Family Medicine; Visit Provider Family Medicine
DX: E78.2 Mixed hyperlipidemia (principal)
CPT/HCPCS: 36415; 80053; 80061; 84443; 85025